=== PATIENT | male | born 1970 ===

== ENCOUNTER 2019-05-30 11:26 | Emergency (ER) | payer SELFPAY ==
[~2019-05-30] VITALS: Ht 177.8 cm; Wt 89.0 kg
[2019-05-30] MEDS ORDERED: LIDOCAINE 1%/EPI 1:100,000 10 ML VIAL IJ ONE (12:15)
[2019-05-30] MEDS ORDERED: LIDOCAINE HCL/PF 1% 10 MG/ML 5ML VIAL IJ ONE (12:15)
[2019-05-30] MEDS ORDERED: BUPIVACAINE HCL 0.5% (5MG/ML) 50ML INFIL ONE (12:15)
[2019-05-30 13:01] LABS: CHLORIDE 101 mEq/L (98-107)
[2019-05-30] MEDS ORDERED: INSULIN REGULAR (HUMULIN R) 300UNITS/3ML SUBCUT ONE (13:15)
[2019-05-30] MEDS ORDERED: KETOROLAC 60MG/2ML VIAL IM ONE (13:15)
[2019-05-30 13:27] VITALS: BP 134/71
== END 2019-05-30 13:53 | disposition home or self-care (01) ==
LOC: ER 13:51
DX: L02.511 Cutaneous abscess of right hand (principal); E11.9 Type 2 diabetes mellitus without complications
CPT/HCPCS: 26010; 36415; 73130; 80048; 82962; 96372; 99284; J1815; J1885; J3490